=== PATIENT | male | born 1995 | race Caucasian/White ===

== ENCOUNTER 2017-01-25 22:02 | Emergency (ER) | payer BC ==
--- NOTE | 2017-01-26 00:29 | Emergency Department Record ---
History of Present Illness - General Chief Complaint: Foreign Body GI/ Stated Complaint: TONGUE RING STUCK IN HIS CHEST Time Seen by Provider: 01/26/17 00:22 Source: Patient Mode of Arrival: Ambulatory Limitations: No limitations - History of Present Illness Initial comments: pt was eating when his tongue piercing came out and he swallowed it. he feels like it is stuck in his throat. no problems swallowing or breathing. no pain Onset/Timin -: Hour(s) Location: Chest Radiation: Non-Radiating Consistency: Constant Treatments Prior to Arrival: None - [place] Coma Scale Eye Response: (4) Open spontaneously Motor Response: (6) Obeys commands Verbal Response: (5) Oriented [place] Total: 15 - Related Data Home Medications Medication Instructions Recorded Confirmed Last Taken Hydroxychloroquine Sulfate 200 mg PO DAILY 01/25/17 01/25/17 Unknown [Plaquenil] Allergies Allergy/AdvReac Type Severity Reaction Status Date / Time sulfamethoxazole Allergy ANAPHYLAXIS Verified 07/16/16 21:30 [From Bactrim] trimethoprim [From Bactrim] Allergy ANAPHYLAXIS Verified 07/16/16 21:30 Travel Screening - Travel/Exposure Within Last 30 Days Have you traveled within the last 30 days?: No Review of Systems Reviewed: No additional complaints except as noted below Constitutional: Reports: As per HPI. Denies: Chills, Fever, Malaise, Night sweats, Weakness, Weight change Eyes: Reports: As per HPI. Denies: Eye discharge, Eye pain, Photophobia, Vision change ENT: Reports: As per HPI. Denies: Congestion, Dental pain, Ear pain, Epistaxis , Hearing loss, Throat pain Respiratory: Reports: As per HPI. Denies: Cough, Dyspnea, Hemoptysis, Stridor, Wheezes Cardiovascular: Reports: As per HPI. Denies: Arrhythmia, Chest pain, Dyspnea on exertion, Edema, Murmurs, Orthopnea, Palpitations, Paroxysmal nocturnal dyspnea, Rheumatic Fever, Syncope Endocrine: Reports: As per HPI. Denies: Fatigue, Heat or cold intolerance, Polydipsia, Polyuria Gastrointestinal: Reports: As per HPI. Denies: Abdominal pain, Constipation, Diarrhea, Hematemesis, Hematochezia, Melena, Nausea, Vomiting Genitourinary: Reports: As per HPI. Denies: Dysuria, Frequency, Hematuria, Incontinence, Retention, Testicular pain, Testicular mass, Urgency Musculoskeletal: Reports: As per HPI. Denies: Arthralgia, Back pain, Gout, Joint swelling, Myalgia, Neck pain Skin: Reports: As per HPI. Denies: Bruising, Change in color, Change in hair/ nails, Lesions, Pruritus, Rash Neurological: Reports: As per HPI. Denies: Abnormal gait, Confusion, Headache, Numbness, Paresthesias, Seizure, Tingling, Tremors, Vertigo, Weakness Psychiatric: Reports: As per HPI. Denies: Anxiety, Auditory hallucinations, Depression, Homicidal thoughts, Suicidal thoughts, Visual hallucinations Hematological/Lymphatic: Reports: As per HPI. Denies: Anemia, Blood Clots, Easy bleeding, Easy bruising, Swollen glands Past Medical History - SOCIAL HISTORY Smoking Status: Never smoker Alcohol Use: None Drug Use: None - RESPIRATORY Hx Respiratory Disorders: No - CARDIOVASCULAR Hx Cardio Disorders: No - NEURO Hx Neuro Disorders: Yes Comment:: lupus - GI Hx GI Disorders: No - Hx Genitourinary Disorders: No - ENDOCRINE Hx Endocrine Disorders: No - MUSCULOSKELETAL Hx Musculoskeletal Disorders: No - PSYCH Hx Psych Problems: No - HEMATOLOGY/ONCOLOGY Hx Hematology/Oncology Disorders: No Family Medical History Any Significant Family History?: Yes Hx Cancer: Grandparents Physical Exam - General General Appearance: Alert, Oriented x3, Cooperative, Mild distress - Head Head exam: Normal inspection - Eye Eye exam: Normal appearance, PERRL, EOMI Pupils: Normal accommodation - ENT ENT exam: Normal exam, Mucous membranes moist, Normal external ear exam, Normal orophraynx Ear exam: Normal external inspection. negative: External canal tenderness Nasal Exam: Normal inspection. negative: Discharge, Sinus tenderness Mouth exam: Normal external inspection, Tongue normal Teeth exam: Normal inspection. negative: Dental caries Throat exam: Normal inspection. negative: Tonsillar erythema, Tonsillar exudate - Neck Neck exam: Normal inspection, Full ROM. negative: Tenderness - Respiratory Respiratory exam: Normal lung sounds bilaterally. negative: Respiratory distress - Cardiovascular Cardiovascular Exam: Regular rate, Normal rhythm, Normal heart sounds - GI/Abdominal GI/Abdominal exam: Soft, Normal bowel sounds. negative: Tenderness - Rectal Rectal exam: Deferred - exam: Deferred - Extremities Extremities exam: Normal inspection, Full ROM, Normal capillary refill. negative: Tenderness - Back Back exam: Reports: Normal inspection, Full ROM. Denies: Muscle spasm, Rash noted, Tenderness - Neurological Neurological exam: Alert, CN II-XII intact, Normal gait, Oriented X3 - Psychiatric Psychiatric exam: Normal affect, Normal mood - Skin Skin exam: Dry, Intact, Normal color, Warm Course Vital Signs 01/25/17 23:48 Temperature 98.4 F Pulse Rate [ 67 Pulse Ox Probe] Respiratory 16 Rate Blood Pressure 138/78 [Left Arm] Pulse Ox 100 - Reevaluation(s) Reevaluation #1: 01/26/17 01:32 piercing appears to be in stomach or colon Disposition Disposition: Discharge Clinical Impression: Foreign body in digestive system Qualifiers: Encounter type: initial encounter Qualified Code(s): T18.9XXA - Foreign body of alimentary tract, part unspecified, initial encounter Disposition: Home, Self-Care Condition: (1) Good Instructions: Foreign Body Ingestion (ED) Additional Instructions: return in 12 hours for repeat xray and evaluation. return sooner if worse or any pain Forms: Patient Portal Access
== END 2017-01-26 01:59 | disposition home or self-care (01) ==
LOC: ER 22:02
DX: T18.9XXA Foreign body of alimentary tract, part unspecified, initial encounter (principal)
CPT/HCPCS: 71020; 74000; 99283

== ENCOUNTER 2017-05-23 13:03 | Emergency (ER) | payer BC ==
[2017-05-23] MEDS ORDERED: METHYLPREDNISOLONE 80MG/VIAL IM ONE (15:19)
--- NOTE | 2017-05-23 15:21 | Emergency Department Record ---
History of Present Illness - General Chief complaint: Rash Stated complaint: RASH UPPER TORSO AND BOTH ARMS Time Seen by Provider: 05/23/17 14:45 Mode of Arrival: Ambulatory - History of Present Illness Initial comments: working on a tree and rash looks like poison ly on his neck and arms complaint: Rash Onset/Timin -: Days(s) Hx Tetanus Toxoid Vaccination: Yes Year of Tetanus Vaccination: 2010 Location: Generalized Consistency: Constant Improves with: None Worsens with: None Associated symptoms: Denies other symptoms Treatments Prior to Arrival: OTC topical medication - Related Data Home Medications Medication Instructions Recorded Confirmed Last Taken Hydroxychloroquine Sulfate 200 mg PO DAILY 01/25/17 05/23/17 05/22/17 [Plaquenil] Previous Rx's Medication Instructions Recorded Prednisone [Prednisone 10Mg] 10 mg PO ASDIR #30 tab 05/23/17 Allergies Allergy/AdvReac Type Severity Reaction Status Date / Time Sulfa (Sulfonamide Allergy ANAPHYLAXIS Verified 05/23/17 14:11 Antibiotics) sulfamethoxazole Allergy ANAPHYLAXIS Verified 07/16/16 21:30 [From Bactrim] trimethoprim [From Bactrim] Allergy ANAPHYLAXIS Verified 07/16/16 21:30 Travel Screening - Travel/Exposure Within Last 30 Days Have you traveled within the last 30 days?: No - Travel/Exposure Within Last Year Have you traveled outside the [place] in the last year?: No - Additonal Travel Details Have you been exposed to anyone with a communicable illness?: No - Travel Symptoms Symptom Screening: None Review of Systems Reviewed: No additional complaints except as noted below Constitutional: Reports: As per HPI. Denies: Chills, Fever, Malaise, Night sweats, Weakness, Weight change Eyes: Reports: As per HPI. Denies: Eye discharge, Eye pain, Photophobia, Vision change ENT: Reports: As per HPI. Denies: Congestion, Dental pain, Ear pain, Epistaxis , Hearing loss, Throat pain Respiratory: Reports: As per HPI. Denies: Cough, Dyspnea, Hemoptysis, Stridor, Wheezes Cardiovascular: Reports: As per HPI. Denies: Arrhythmia, Chest pain, Dyspnea on exertion, Edema, Murmurs, Orthopnea, Palpitations, Paroxysmal nocturnal dyspnea, Rheumatic Fever, Syncope Endocrine: Reports: As per HPI. Denies: Fatigue, Heat or cold intolerance, Polydipsia, Polyuria Gastrointestinal: Reports: As per HPI. Denies: Abdominal pain, Constipation, Diarrhea, Hematemesis, Hematochezia, Melena, Nausea, Vomiting Genitourinary: Reports: As per HPI. Denies: Dysuria, Frequency, Hematuria, Incontinence, Retention, Testicular pain, Testicular mass, Urgency Musculoskeletal: Reports: As per HPI. Denies: Arthralgia, Back pain, Gout, Joint swelling, Myalgia, Neck pain Skin: Reports: As per HPI, Rash. Denies: Bruising, Change in color, Change in hair/nails, Lesions, Pruritus Neurological: Reports: As per HPI. Denies: Abnormal gait, Confusion, Headache, Numbness, Paresthesias, Seizure, Tingling, Tremors, Vertigo, Weakness Psychiatric: Reports: As per HPI. Denies: Anxiety, Auditory hallucinations, Depression, Homicidal thoughts, Suicidal thoughts, Visual hallucinations Hematological/Lymphatic: Reports: As per HPI. Denies: Anemia, Blood Clots, Easy bleeding, Easy bruising, Swollen glands Past Medical History - SOCIAL HISTORY Smoking Status: Never smoker Alcohol Use: None Drug Use: None - RESPIRATORY Hx Respiratory Disorders: No - CARDIOVASCULAR Hx Cardio Disorders: No - NEURO Hx Neuro Disorders: Yes Comment:: lupus - GI Hx GI Disorders: No - Hx Genitourinary Disorders: No - ENDOCRINE Hx Endocrine Disorders: No - MUSCULOSKELETAL Hx Musculoskeletal Disorders: No - PSYCH Hx Psych Problems: No - HEMATOLOGY/ONCOLOGY Hx Hematology/Oncology Disorders: No Family Medical History Any Significant Family History?: No Hx Cancer: Grandparents Physical Exam - General General Appearance: Alert, Oriented x3, Cooperative, No acute distress - Head Head exam: Normal inspection - Eye Eye exam: Normal appearance, PERRL Pupils: Normal accommodation - ENT ENT exam: Normal exam, Mucous membranes moist, Normal external ear exam, Normal orophraynx, TM's normal bilaterally Ear exam: Normal external inspection. negative: External canal tenderness Nasal Exam: Normal inspection. negative: Discharge, Sinus tenderness Mouth exam: Normal external inspection, Tongue normal Teeth exam: Normal inspection. negative: Dental caries Throat exam: Normal inspection. negative: Tonsillar erythema, Tonsillar exudate - Neck Neck exam: Normal inspection, Full ROM. negative: Tenderness - Respiratory Respiratory exam: Normal lung sounds bilaterally. negative: Respiratory distress - Cardiovascular Cardiovascular Exam: Regular rate, Normal rhythm, Normal heart sounds - GI/Abdominal GI/Abdominal exam: Soft, Normal bowel sounds. negative: Tenderness - Rectal Rectal exam: Deferred - exam: Deferred - Extremities Extremities exam: Normal inspection, Full ROM, Normal capillary refill. negative: Tenderness - Back Back exam: Reports: Normal inspection, Full ROM. Denies: Muscle spasm, Rash noted, Tenderness - Neurological Neurological exam: Alert, Normal gait, Oriented X3, Reflexes normal - Psychiatric Psychiatric exam: Normal affect, Normal mood - Skin Skin exam: Rash (of poison ly) Course Vital Signs 05/23/17 14:01 Temperature 98.0 F Pulse Rate [ 66 Pulse Ox Probe] Respiratory 16 Rate Blood Pressure 119/65 [Left Arm] Pulse Ox 99 Disposition Clinical Impression: Poison ly dermatitis Disposition: Home, Self-Care Condition: (1) Good Instructions: Poison Ly (ED) Additional Instructions: follow up with family in one week ly dry benadryl 25-50 mg every 6 hours as needed for itching Prescriptions: Prednisone [Prednisone 10Mg] 10 mg PO ASDIR #30 tab Forms: Patient Portal Access Time of Disposition: 15:22 Quality - Quality Measures Quality Measures: N/A - Blood Pressure Screening Blood Pressure Classification: Normal BP Reading Systolic Measurement: 119 Diastolic Measurement: 65 Screening for High Blood Pressure: < Normal BP, F/U Not Required > [G8783] Normal BP Follow-up Interventions: No follow-up required
== END 2017-05-23 15:44 | disposition home or self-care (01) ==
LOC: ER 13:03
DX: L23.7 Allergic contact dermatitis due to plants, except food (principal)
CPT/HCPCS: 96372; 99283; J1040

== ENCOUNTER 2017-07-04 15:09 | Emergency (ER) | payer BC ==
--- NOTE | 2017-07-04 15:44 | Emergency Department Record ---
History of Present Illness - General Chief complaint: ENT Stated complaint: DENTAL PAIN Time Seen by Provider: 07/04/17 15:43 Source: RN notes reviewed Mode of Arrival: Ambulatory - History of Present Illness Initial comments: right lower molar dental pain MD complaint: Tooth pain Onset/Timin -: Days(s) Severity: Moderate Severity scale (1-10): 10 Quality: Aching Consistency: Constant Improves with: None Worsens with: None Context- Dental: History of dental caries Associated Symptoms: Toothache - Related Data Previous Rx's Medication Instructions Recorded Penicillin V Potassium 500 mg PO QID #40 tablet 07/04/17 Tramadol HCl 50 mg PO Q8H #20 tab 07/04/17 Allergies Allergy/AdvReac Type Severity Reaction Status Date / Time Sulfa (Sulfonamide Allergy ANAPHYLAXIS Verified 07/04/17 15:23 Antibiotics) sulfamethoxazole Allergy ANAPHYLAXIS Verified 07/04/17 15:23 [From Bactrim] trimethoprim [From Bactrim] Allergy ANAPHYLAXIS Verified 07/04/17 15:23 Travel Screening - Travel/Exposure Within Last 30 Days Have you traveled within the last 30 days?: No - Travel/Exposure Within Last Year Have you traveled outside the [place] in the last year?: No - Additonal Travel Details Have you been exposed to anyone with a communicable illness?: No - Travel Symptoms Symptom Screening: None Review of Systems Reviewed: No additional complaints except as noted below Constitutional: Reports: As per HPI. Denies: Chills, Fever, Malaise, Night sweats, Weakness, Weight change Eyes: Reports: As per HPI. Denies: Eye discharge, Eye pain, Photophobia, Vision change ENT: Reports: As per HPI. Denies: Congestion, Dental pain, Ear pain, Epistaxis , Hearing loss, Throat pain Respiratory: Reports: As per HPI. Denies: Cough, Dyspnea, Hemoptysis, Stridor, Wheezes Cardiovascular: Reports: As per HPI. Denies: Arrhythmia, Chest pain, Dyspnea on exertion, Edema, Murmurs, Orthopnea, Palpitations, Paroxysmal nocturnal dyspnea, Rheumatic Fever, Syncope Endocrine: Reports: As per HPI. Denies: Fatigue, Heat or cold intolerance, Polydipsia, Polyuria Gastrointestinal: Reports: As per HPI. Denies: Abdominal pain, Constipation, Diarrhea, Hematemesis, Hematochezia, Melena, Nausea, Vomiting Genitourinary: Reports: As per HPI. Denies: Dysuria, Frequency, Hematuria, Incontinence, Retention, Testicular pain, Testicular mass, Urgency Musculoskeletal: Reports: As per HPI. Denies: Arthralgia, Back pain, Gout, Joint swelling, Myalgia, Neck pain Skin: Reports: As per HPI. Denies: Bruising, Change in color, Change in hair/ nails, Lesions, Pruritus, Rash Neurological: Reports: As per HPI. Denies: Abnormal gait, Confusion, Headache, Numbness, Paresthesias, Seizure, Tingling, Tremors, Vertigo, Weakness Psychiatric: Reports: As per HPI. Denies: Anxiety, Auditory hallucinations, Depression, Homicidal thoughts, Suicidal thoughts, Visual hallucinations Hematological/Lymphatic: Reports: As per HPI. Denies: Anemia, Blood Clots, Easy bleeding, Easy bruising, Swollen glands Past Medical History - SOCIAL HISTORY Smoking Status: Never smoker Alcohol Use: Occasional Drug Use: None - RESPIRATORY Hx Respiratory Disorders: No - CARDIOVASCULAR Hx Cardio Disorders: No - NEURO Hx Neuro Disorders: Yes Comment:: lupus - GI Hx GI Disorders: No - Hx Genitourinary Disorders: No - ENDOCRINE Hx Endocrine Disorders: No - MUSCULOSKELETAL Hx Musculoskeletal Disorders: No - PSYCH Hx Psych Problems: No - HEMATOLOGY/ONCOLOGY Hx Hematology/Oncology Disorders: No Family Medical History Any Significant Family History?: Yes Hx Cancer: Grandparents Physical Exam - General General Appearance: Alert, Oriented x3, Cooperative, No acute distress - Head Head exam: Normal inspection - Eye Eye exam: Normal appearance, PERRL Pupils: Normal accommodation - ENT ENT exam: Normal exam, Mucous membranes moist, Normal external ear exam, Normal orophraynx, TM's normal bilaterally Ear exam: Normal external inspection. negative: External canal tenderness Nasal Exam: Normal inspection. negative: Discharge, Sinus tenderness Mouth exam: Normal external inspection, Tongue normal Teeth exam: Normal inspection. negative: Dental caries Throat exam: Normal inspection. negative: Tonsillar erythema, Tonsillar exudate - Neck Neck exam: Normal inspection, Full ROM. negative: Tenderness - Respiratory Respiratory exam: Normal lung sounds bilaterally. negative: Respiratory distress - Cardiovascular Cardiovascular Exam: Regular rate, Normal rhythm, Normal heart sounds - GI/Abdominal GI/Abdominal exam: Soft, Normal bowel sounds. negative: Tenderness - Rectal Rectal exam: Deferred - exam: Deferred - Extremities Extremities exam: Normal inspection, Full ROM, Normal capillary refill. negative: Tenderness - Back Back exam: Reports: Normal inspection, Full ROM. Denies: Muscle spasm, Rash noted, Tenderness - Neurological Neurological exam: Alert, Normal gait, Oriented X3, Reflexes normal - Psychiatric Psychiatric exam: Normal affect, Normal mood - Skin Skin exam: Dry, Intact, Normal color, Warm Course Vital Signs 07/04/17 07/04/17 15:14 15:24 Temperature 98.8 F 98.8 F Pulse Rate 94 H Pulse Rate [ 95 H Pulse Ox Probe] Respiratory 14 14 Rate Blood Pressure 138/79 Blood Pressure 138/79 [Left Arm] Pulse Ox 98 98 Disposition Clinical Impression: Toothache Disposition: Home, Self-Care Condition: (1) Good Instructions: Toothache (ED) Additional Instructions: follow up with dentist next week Prescriptions: Penicillin V Potassium 500 mg PO QID #40 tablet Tramadol HCl 50 mg PO Q8H #20 tab Forms: Patient Portal Access Time of Disposition: 16:10 Quality - Quality Measures Quality Measures: N/A - Blood Pressure Screening Does Patient Have Any of the Following: No Blood Pressure Classification: Pre-Hypertensive BP Reading Systolic Measurement: 138 Diastolic Measurement: 79 Screening for High Blood Pressure: < Pre-Hypertensive BP, F/U Documented > [ G8950] Pre-Hypertensive Follow-up Interventions: Referral to alternative/primary care provider.
== END 2017-07-04 16:20 | disposition home or self-care (01) ==
LOC: ER 15:09
DX: K08.89 Other specified disorders of teeth and supporting structures (principal)
CPT/HCPCS: 99282

== ENCOUNTER 2017-07-16 18:17 | Emergency (ER) | payer BC ==
[2017-07-16] MEDS ORDERED: Diph,Pert(Acell),Tet Vac 0.5 ML SYR IM ONE (18:44)
--- NOTE | 2017-07-16 18:46 | Emergency Department Record ---
History of Present Illness - General Chief Complaint: Laceration(s) Stated Complaint: LACERATION ON RT KNEE Time Seen by Provider: 07/16/17 18:44 Source: Patient Mode of Arrival: Ambulatory Limitations: No limitations - History of Present Illness Initial Commments: 22 yo male presents to ED with a CC of injury (laceration) to the right knee. Patient reports that he was playing with his daughter when he rolled of the bed striking his right knee on the bed frame resulting in injury. Patient denies other injury, and reports that he was able to ambulate with steady gait. Patient reports history of Lupus, last tetanus was in 2010. Onset/Timin -: Minutes(s) Extremity Location: Right: Knee Place: Home Context: Accidental Associated Symptoms: None Treatments Prior to Arrival: Bandage - [place] Coma Scale Eye Response: (4) Open spontaneously Motor Response: (6) Obeys commands Verbal Response: (5) Oriented [place] Total: 15 - Related Data Hx Tetanus Toxoid Vaccination: Yes Year of Tetanus Vaccination: 2010 Patient Tetanus UTD (within 5 yrs): No Previous Rx's Medication Instructions Recorded Penicillin V Potassium 500 mg PO QID #40 tablet 07/04/17 Allergies Allergy/AdvReac Type Severity Reaction Status Date / Time Sulfa (Sulfonamide Allergy ANAPHYLAXIS Verified 07/16/17 18:23 Antibiotics) sulfamethoxazole Allergy ANAPHYLAXIS Verified 07/16/17 18:23 [From Bactrim] trimethoprim [From Bactrim] Allergy ANAPHYLAXIS Verified 07/16/17 18:23 Travel Screening - Travel/Exposure Within Last 30 Days Have you traveled within the last 30 days?: No - Travel/Exposure Within Last Year Have you traveled outside the [place] in the last year?: No - Additonal Travel Details Have you been exposed to anyone with a communicable illness?: No - Travel Symptoms Symptom Screening: None Review of Systems Constitutional: Denies: Chills, Fever, Malaise, Night sweats Eyes: Denies: Eye discharge, Eye pain ENT: Denies: Congestion, Ear pain, Epistaxis Respiratory: Denies: Cough, Dyspnea Cardiovascular: Denies: Chest pain, Dyspnea on exertion Endocrine: Denies: Fatigue, Heat or cold intolerance Gastrointestinal: Denies: Abdominal pain, Constipation, Vomiting Genitourinary: Denies: Incontinence, Retention Musculoskeletal: Denies: Arthralgia, Back pain, Gout, Joint swelling Skin: Reports: Other (laceration right knee). Denies: Bruising, Change in color Neurological: Denies: Abnormal gait, Confusion, Headache, Seizure Psychiatric: Denies: Anxiety Hematological/Lymphatic: Denies: Anemia, Blood Clots Past Medical History - SOCIAL HISTORY Smoking Status: Never smoker Alcohol Use: Occasional Drug Use: None - RESPIRATORY Hx Respiratory Disorders: No - CARDIOVASCULAR Hx Cardio Disorders: No - NEURO Hx Neuro Disorders: Yes Comment:: lupus - GI Hx GI Disorders: No - Hx Genitourinary Disorders: No - ENDOCRINE Hx Endocrine Disorders: No - MUSCULOSKELETAL Hx Musculoskeletal Disorders: No - PSYCH Hx Psych Problems: No - HEMATOLOGY/ONCOLOGY Hx Hematology/Oncology Disorders: No Family Medical History Any Significant Family History?: Yes Hx Cancer: Grandparents Physical Exam - General General Appearance: Alert, Oriented x3, Cooperative, Mild distress Limitations: No limitations - Head Head exam: Atraumatic, Normocephalic, Normal inspection Head exam detail: negative: Abrasion, Contusion, Linda's sign, General tenderness, Hematoma, Laceration - Eye Eye exam: Normal appearance. negative: Conjunctival injection, Periorbital swelling, Periorbital tenderness, Scleral icterus - ENT Ear exam: negative: Auricular hematoma, Auricular trauma Nasal Exam: negative: Active bleeding, Discharge, Dried blood, Foreign body Mouth exam: negative: Drooling, Laceration, Muffled voice, Tongue elevation - Neck Neck exam: Normal inspection. negative: Meningismus, Tenderness - Respiratory Respiratory exam: Normal lung sounds bilaterally. negative: Rales, Respiratory distress, Rhonchi, Stridor, Wheezes - Cardiovascular Cardiovascular Exam: Regular rate, Normal rhythm, Normal heart sounds - GI/Abdominal GI/Abdominal exam: Soft. negative: Rebound, Rigid, Tenderness - Rectal Rectal exam: Deferred - exam: Deferred - Extremities Extremities exam: Tenderness, Other (3.0 cm linear laceration to the right anterior knee, involves epidermis only, no dermis ahs been lacerated.). negative: Calf tenderness, Pedal edema - Back Back exam: Denies: CVA tenderness (R), CVA tenderness (L) - Neurological Neurological exam: Alert, Normal gait, Oriented X3 - Psychiatric Psychiatric exam: Normal affect, Normal mood - Skin Skin exam: Normal color. negative: Abrasion Type of lesion: negative: abrasion Course Vital Signs 07/16/17 07/16/17 18:23 18:24 Temperature 98.2 F 98.2 F Pulse Rate 78 Pulse Rate [ 92 H Pulse Ox Probe] Respiratory 16 16 Rate Blood Pressure 143/84 Blood Pressure 143/84 [Left Arm] Pulse Ox 99 99 - Reevaluation(s) Reevaluation #1: 07/16/17 18:49 Procedure Note: Given the location of the patient's injury (right anterior knee) , dermabond is not thought to be the most appropriate option due to the likelihood of early breakdown. Wound was extensively cleaned with Shurclens solution, no FBs identified. Wound was then closed with 4-0 Prolene sutures (#6 ) using interrupted fashion achieving both good cosmesis and hemostasis. Patient tolerated the procedure well without complications, tetanus was updated , and the patient appears stable for discharge at this time. Disposition Disposition: Discharge Clinical Impression: Knee laceration Qualifiers: Encounter type: initial encounter Laterality: right Qualified Code(s): S81.011A - Laceration without foreign body, right knee, initial encounter Disposition: Home, Self-Care Condition: (2) Stable Instructions: Laceration (ED) Additional Instructions: Return to ED if your symptoms worsen or if you have any concerns. Sutures out in 10-14 days. Continue your previous prescribed Penicillin as directed. Follow-up with your family doctor in 1 week. Forms: Patient Portal Access Time of Disposition: 18:45 Quality - Quality Measures Quality Measures: N/A - Blood Pressure Screening Does Patient Have Any of the Following: No Blood Pressure Classification: Pre-Hypertensive BP Reading Systolic Measurement: 143 Diastolic Measurement: 84 Screening for High Blood Pressure: < Pre-Hypertensive BP, F/U Documented > [ G8950] Pre-Hypertensive Follow-up Interventions: Referral to alternative/primary care provider.
== END 2017-07-16 19:12 | disposition home or self-care (01) ==
LOC: ER 18:17
DX: S81.011A Laceration without foreign body, right knee, initial encounter (principal); W06.XXXA Fall from bed, initial encounter; Y92.003 Bedroom of unspecified non-institutional (private) residence as the place of occurrence of the external cause
CPT/HCPCS: 12002; 90715; 96372; 99283

== ENCOUNTER 2018-12-13 07:03 | Emergency (ER) | payer BC ==
--- NOTE | 2018-12-13 07:19 | Emergency Department Record ---
History of Present Illness - General Chief complaint: Abscess Stated complaint: ABSCESS ON BUTTOCKS Time Seen by Provider: 12/13/18 07:13 Source: Patient Mode of Arrival: Ambulatory Limitations: No limitations - History of Present Illness Initial comments: Pt with complaint of "abscess to butt cheek". 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 Multiple antibiotic allergies as listed. No fever, no pain near rectum. No drainage from site. No DM. No prior treatment for this event. Onset/Timin -: Days(s) Hx Tetanus Toxoid Vaccination: Yes Year of Tetanus Vaccination: 2010 Location: Buttocks Severity: Moderate Severity scale (1-10): 8 Quality: Sharp Consistency: Constant Improves with: Immobilization Worsens with: Palpation, Movement Context: None Associated symptoms: Denies other symptoms Treatments Prior to Arrival: None - Related Data Home Medications Medication Instructions Recorded Confirmed Last Taken Hydroxychloroquine Sulfate 200 mg PO BID 12/13/18 12/13/18 Unknown [Plaquenil] Previous Rx's Medication Instructions Recorded Linezolid [Zyvox] 600 mg PO BID 10 Days #20 tablet 12/13/18 Allergies Allergy/AdvReac Type Severity Reaction Status Date / Time clindamycin Allergy acid reflux Unverified 08/16/18 13:15 doxycycline Allergy ANAPHYLAXIS Unverified 08/16/18 13:15 levofloxacin [From Levaquin] Allergy ANAPHYLAXIS Unverified 08/16/18 13:15 Sulfa (Sulfonamide Allergy ANAPHYLAXIS Unverified 08/16/18 13:15 Antibiotics) sulfamethoxazole Allergy ANAPHYLAXIS Unverified 08/16/18 13:15 [From Bactrim] trimethoprim [From Bactrim] Allergy ANAPHYLAXIS Unverified 08/16/18 13:15 Travel Screening - Travel/Exposure Within Last 30 Days Have you traveled within the last 30 days?: No Review of Systems Constitutional: Denies: Chills, Fever, Weakness Eyes: Denies: Eye discharge ENT: Denies: Congestion Respiratory: Denies: Cough, Dyspnea Cardiovascular: Denies: Chest pain, Syncope Endocrine: Denies: Fatigue, Polydipsia, Polyuria Gastrointestinal: Denies: Abdominal pain, Constipation, Diarrhea Genitourinary: Denies: Dysuria, Incontinence Musculoskeletal: Denies: Arthralgia, Back pain Skin: Reports: As per HPI. Denies: Bruising Neurological: Denies: Headache, Seizure Psychiatric: Denies: Anxiety Hematological/Lymphatic: Denies: Anemia Past Medical History - SOCIAL HISTORY Smoking Status: Never smoker - RESPIRATORY Hx Respiratory Disorders: No - CARDIOVASCULAR Hx Cardio Disorders: No - NEURO Hx Neuro Disorders: Yes Comment:: lupus - GI Hx GI Disorders: No - Hx Genitourinary Disorders: No - ENDOCRINE Hx Endocrine Disorders: No - MUSCULOSKELETAL Hx Musculoskeletal Disorders: No - PSYCH Hx Psych Problems: No - HEMATOLOGY/ONCOLOGY Hx Hematology/Oncology Disorders: No Family Medical History Any Significant Family History?: Yes Hx Cancer: Grandparents Physical Exam - General General Appearance: Alert, Oriented x3, Cooperative, No acute distress - Head Head exam: Normal inspection - Eye Eye exam: Normal appearance, PERRL - ENT ENT exam: Mucous membranes moist, Normal external ear exam - Neck Neck exam: Normal inspection, Full ROM - Respiratory Respiratory exam: Normal lung sounds bilaterally. negative: Rhonchi, Stridor - Cardiovascular Cardiovascular Exam: Regular rate, Normal rhythm, Normal heart sounds. negative : Tachycardia - GI/Abdominal GI/Abdominal exam: Soft, Normal bowel sounds. negative: Tenderness - Extremities Extremities exam: Normal inspection, Full ROM - Back Back exam: Reports: Normal inspection - Neurological Neurological exam: Alert, Normal gait, Oriented X3 - Psychiatric Psychiatric exam: Normal affect, Normal mood - Skin Skin exam: Normal color (left buttock at crease of thigh with 2.5cm area of induration and erythema, no fluctuance or drainage. No pointing. No perirectal swelling or tenderness. ) Course Vital Signs 12/13/18 07:07 Temperature 98.1 F Pulse Rate [ 103 H Pulse Ox Probe] Respiratory 20 Rate Blood Pressure 158/84 [Left Arm] Pulse Ox 98 - Reevaluation(s) Reevaluation #1: 12/13/18 07:19 Hx of absecess issues with MRSA and allergies to ABs. States he takes "Zyvox" for these without issue. At this time not ready for I&D. Home with sitz baths and AB. Recheck. Disposition Disposition: Discharge Clinical Impression: Abscess of buttock, left Disposition: Home, Self-Care Condition: (2) Stable Instructions: Abscess (ED) Additional Instructions: Warm bath soaks Take Antibiotic as instructed. Return to ED if ozzy Family doctor recheck in 48 hours. Prescriptions: Linezolid [Zyvox] 600 mg PO BID 10 Days #20 tablet Time of Disposition: 07:15 Quality - Quality Measures Quality Measures: N/A - Blood Pressure Screening Does Patient Have Any of the Following: No Blood Pressure Classification: Pre-Hypertensive BP Reading Systolic Measurement: 158 Diastolic Measurement: 84 Screening for High Blood Pressure: < Pre-Hypertensive BP, F/U Documented > [ G8950] Pre-Hypertensive Follow-up Interventions: Follow-up with rescreen every year.
== END 2018-12-13 07:32 | disposition home or self-care (01) ==
LOC: ER 07:03
DX: L02.31 Cutaneous abscess of buttock (principal); Z86.14 Personal history of Methicillin resistant Staphylococcus aureus infection
CPT/HCPCS: 99282

== ENCOUNTER 2019-08-17 12:19 | Emergency (ER) | payer BC ==
[2019-08-17] MEDS ORDERED: ORPHENADRINE CITRATE 60MG/2ML VIAL IM ONE (12:37)
[2019-08-17] MEDS ORDERED: KETOROLAC 30 MG/ML VIAL IM ONE (12:37)
--- NOTE | 2019-08-17 12:41 | Emergency Department Record ---
History of Present Illness - General Chief Complaint: Back Pain/Injury Stated Complaint: BACK PAIN Time Seen by Provider: 08/17/19 12:22 Source: Patient Mode of Arrival: EMS Limitations: No limitations - History of Present Illness Initial Comments: The patient is here due to R lower back pain for 2 hours. The patient states he went to pump gas and to place air in his tires and when he was getting out of the car and bending over he felt a pinch and pain over his R lower back. The pain soon got much worse and then he felt he was unable to move due to the pain. At that point he was at home and he layed down on the driveway and waited for EMS. The patient denies any recent trauma, injury, radiation of the pain down the legs, leg numbness, weakness, or any bowel or bladder issues. The patient has had similar pain in the past about 3 months ago and that lasted a few days but then resolved. MD Complaint: Back pain Onset/Timin -: Hour(s) Place: Home Radiation: None Associated Symptoms: Difficulty walking Treatments Prior to Arrival: Acetaminophen - Related Data Previous Rx's Medication Instructions Recorded Cyclobenzaprine HCl [Flexeril] 10 mg PO TID PRN #20 tablet 08/17/19 Naproxen [Naprosyn] 500 mg PO BID #14 tablet. 08/17/19 Allergies Allergy/AdvReac Type Severity Reaction Status Date / Time clindamycin Allergy acid reflux Unverified 08/16/18 13:15 doxycycline Allergy ANAPHYLAXIS Unverified 08/16/18 13:15 levofloxacin [From Levaquin] Allergy ANAPHYLAXIS Unverified 08/16/18 13:15 Sulfa (Sulfonamide Allergy ANAPHYLAXIS Unverified 08/16/18 13:15 Antibiotics) sulfamethoxazole Allergy ANAPHYLAXIS Unverified 08/16/18 13:15 [From Bactrim] tramadol Allergy RASH Verified 08/17/19 12:32 trimethoprim [From Bactrim] Allergy ANAPHYLAXIS Unverified 08/16/18 13:15 Travel Screening - Travel/Exposure Within Last 30 Days Have you traveled within the last 30 days?: No - Travel/Exposure Within Last Year Have you traveled outside the [place] in the last year?: No - Additonal Travel Details Have you been exposed to anyone with a communicable illness?: No - Travel Symptoms Symptom Screening: None Review of Systems Constitutional: Denies: Chills, Fever Eyes: Denies: Eye discharge ENT: Denies: Congestion Respiratory: Denies: Cough, Dyspnea Past Medical History - SOCIAL HISTORY Smoking Status: Never smoker Alcohol Use: Rare Drug Use: Occasional Drug Use Detail:: Marijuana - RESPIRATORY Hx Respiratory Disorders: No - CARDIOVASCULAR Hx Cardio Disorders: No - NEURO Hx Neuro Disorders: Yes Comment:: lupus - GI Hx GI Disorders: No - Hx Genitourinary Disorders: No - ENDOCRINE Hx Endocrine Disorders: No - MUSCULOSKELETAL Hx Musculoskeletal Disorders: Yes Comment:: lupus - PSYCH Hx Psych Problems: No - HEMATOLOGY/ONCOLOGY Hx Hematology/Oncology Disorders: No Family Medical History Any Significant Family History?: No Hx Cancer: Grandparents Physical Exam - General General Appearance: Alert, Oriented x3, Cooperative, No acute distress (The patient is resting pain free at this time. He has no pain unless he is moving.) - Head Head exam: Atraumatic, Normocephalic, Normal inspection - Eye Eye exam: Normal appearance, PERRL - Neck Neck exam: Normal inspection, Full ROM. negative: Tenderness - Respiratory Respiratory exam: Normal lung sounds bilaterally. negative: Respiratory distress - Cardiovascular Cardiovascular Exam: Regular rate, Normal rhythm, Normal heart sounds - GI/Abdominal GI/Abdominal exam: Soft, Normal bowel sounds. negative: Tenderness - Extremities Extremities exam: Normal inspection, Full ROM, Normal capillary refill, Other (Neg SLR bilaterally.). negative: Tenderness - Back Back exam: Reports: Normal inspection, Muscle spasm, Paraspinal tenderness (There is R paraspinal L4-5 tenderness with muscle spasm.). Denies: Vertebral tenderness - Neurological Neurological exam: Alert, Normal gait, Oriented X3, Reflexes normal (The patella and achilles reflexes are 2+ and equal bilaterally.). negative: Abnormal gait, Altered, Motor sensory deficit - Psychiatric Psychiatric exam: negative: Anxious - Skin Skin exam: negative: Rash Course Vital Signs 08/17/19 12:24 Temperature 97.4 F L Pulse Rate 76 Respiratory 16 Rate Blood Pressure 144/85 Pulse Ox 100 - Reevaluation(s) Reevaluation #1: The patient is doing better at this time but is still having pain. He was able to get up and walk with minimal difficulty. He was able to urinate without difficulty. 08/17/19 13:23 Reevaluation #2: The patient is doing a lot better at this time. His pain is much improved and he is able to get up with very minimal help and is walking on his own. The patient does feel ready for home. 08/17/19 14:03 Disposition Disposition: Discharge Clinical Impression: Spasm of lumbar paraspinous muscle Disposition: Home, Self-Care Condition: (2) Stable Instructions: Low Back Strain (ED) Additional Instructions: Rest at home with no lifting and off work 2 days. Take Naprosyn and Flexeril as directed for pain. Return to the ER for any worsening pain, leg numbness, weakness or any bowel or bladder issues. Prescriptions: Cyclobenzaprine HCl [Flexeril] 10 mg PO TID PRN #20 tablet PRN Reason: Pain Naproxen [Naprosyn] 500 mg PO BID #14 tablet.dr Forms: Patient Portal Access Time of Disposition: 14:02 Quality - Quality Measures Quality Measures: N/A - Blood Pressure Screening View Details: Yes Does Patient Have Any of the Following: No Blood Pressure Classification: Pre-Hypertensive BP Reading Systolic Measurement: 144 Diastolic Measurement: 85 Screening for High Blood Pressure: < Pre-Hypertensive BP, F/U Documented > [G8950] Pre-Hypertensive Follow-up Interventions: Referral to alternative/primary care provider.
[2019-08-17] MEDS ORDERED: ACETAMINOPHEN 1,000 MG/100 ML BTL IVPB ONE (13:06)
[2019-08-17] MEDS ORDERED: HYDROCODONE/APAP 5/325MG TABLET PO ONE (14:00)
== END 2019-08-17 14:17 | disposition home or self-care (01) ==
LOC: ER 12:19
DX: M54.5 Low back pain (principal); R26.2 Difficulty in walking, not elsewhere classified
CPT/HCPCS: 99284 ×2; 96372; 96365; J1885; J2360